=== PATIENT | male | born 1955 ===

== ENCOUNTER → 2024-02-09 07:05 | Outpatient (REF) | payer OTHER, SELFPAY | LOC: RAD 07:05 | PROVIDERS: ATTENDING PHYSICIAN Nurse Practitioner | DX: Q33.0 Congenital cystic lung (principal) | CPT/HCPCS: 71250 ==

== ENCOUNTER → 2024-03-04 12:32 | Day surgery (SDC) | payer OTHER, SELFPAY ==
[2024-03-04] VITALS (7 sets, daily range): BP systolic 139–166; BP diastolic 80–99; BMI 26.7
== END ==
LOC: GI 12:32
PROVIDERS: ATTENDING PHYSICIAN Internal Medicine Critical Care Medicine
DX: J18.1 Lobar pneumonia, unspecified organism (principal); R93.89 Abnormal findings on diagnostic imaging of other specified body structures; R06.02 Shortness of breath; J47.9 Bronchiectasis, uncomplicated; J44.9 Chronic obstructive pulmonary disease, unspecified
CPT/HCPCS: 31629; 31623; 31628; 31624; 31627; 31652; 88172; 88173; 88305; 71045; 76000; 87015; 87070; 87081; 87102; 87116; 87205; 87252; 87278; 88112; 88333; 94640; C1887

== ENCOUNTER 2024-03-14 22:10 | Inpatient (IN) | payer OTHER, SELFPAY ==
[2024-03-14] VITALS (9 sets, daily range): BP systolic 113–167; BP diastolic 69–90; BMI 26.0
[2024-03-14 16:27] LABS: % Basophils 0.6 % (0-2); % Eosinophils 4.1 % (0-6); % Lymphocytes 28.6 % (20.5-51.1); % Monocytes 10.3 % (1.7-9.3); % Neutrophils 55.4 % (42.2-75.2); Absolute Basophils 0.1 10^3/uL (0-0.2); Absolute Eosinophils 0.3 10^3/uL (0-0.7); Absolute Immature Granulocytes 0.1 10^3/uL (0-0.05); Absolute Lymphocytes 2.3 10^3/uL (1.2-3.4); Absolute Monocytes 0.8 10^3/uL (0.1-0.6); Absolute Neutrophils 4.5 10^3/uL (1.4-6.5); Hematocrit 35.6 % (39.0-52.0); Hemoglobin 12.5 g/dL (13.0-18.0); Mean Corp Hgb Conc. 35.1 g/dL (33.0-37.0); Mean Corpuscular Hgb 29.4 pg (27.0-31.0); Mean Corpuscular Volume 83.8 fL (80.0-94.0); Mean Platelet Volume 8.5 fL (7.4-10.4); Nucleated Red Blood Cells % 0 % (-); Platelet Count 268 10^3/uL (130-400); Red Blood Cell Count 4.25 10^6/uL (4.70-6.10); Red Cell Dist. Width 12.3 % (11.5-14.5); White Blood Cell Count 8.1 10^3/uL (4.8-10.8)
[2024-03-14 16:46] LABS: ALT (SGPT) 26 U/L (0-50); AST (SGOT) 28 U/L (17-59); Albumin 4.3 g/dl (3.5-5.0); Alkaline Phosphatase 86 U/L (38-126); Blood Urea Nitrogen 19 mg/dl (9-20); Calcium 9.4 mg/dl (8.4-10.2); Carbon Dioxide 28 mmol/L (22-30); Chloride 101 mmol/L (98-107); Estimated Creatinine Clearance 76 ml/min; Glucose 98 mg/dl (70-99); Potassium 4.4 mmol/L (3.5-5.1); Sodium 137 mmol/L (135-145); Total Bilirubin 0.6 mg/dl (0.2-1.3); Total Protein 7.6 g/dl (6.3-8.2); eGFR > 60.00
--- NOTE | 2024-03-14 18:06 | ED.GENMED ---
History of Present Illness
General
Chief Complaint: Cough
Source: patient
Exam Limitations: none
Time Seen by Provider: 03/14/24 16:13
Nursing documentation reviewed up to this point in time: agreed with
Travel History
Have you had any contact with someone who has COVID-19?: No
Do you have any symptoms of coronavirus? Fever > 100 degrees, chills, cough, shortness of breath, sore throat, loss of taste or smell, muscle aches, or headache?: No
History of Present Illness
History of Present Illness:
69-year-old male with past medical history of chronic bronchitis, anxiety, depression presenting emergency department today with concerns of persistent hemoptysis following his bronchoscopy on March 04, 2024. Patient presents from [facility]. Patient
states that he she had the biopsy done because of 1 episode of hemoptysis. Patient states at that time there is blood-tinged sputum. Patient states that following the procedure, he started with this but then it progressed to increasing volumes of
blood and jen blood and clots rather than blood tinged sputum. Patient states that he will cough up multiple teaspoons per day. Patient denies chest pain, shortness of breath. Patient has any abdominal pain, nausea, vomiting. Patient denies
any recent hospitalizations, patient denies any fevers or chills.
Review of Systems
Review of Systems
All Other Systems: ROS reviewed and negative except as documented in HPI and ROS
Phy Exam
Physical Exam
Physical Exam:
General: Patient is well appearing and in no acute distress; non-toxic
Skin: Warm and dry, no rashes or lesions
Head: Normocephalic, atraumatic
Eyes: Sclera non-icteric. EOMs intact. PERRLA.
Mouth: No obvious blood noted in posterior pharynx. Uvula midline.
Cardiac: Regular rate and rhythm, no murmurs, patient is not tachycardiac
Peripheral Vascular: No lower extremity swelling or edema
Pulm: Normal respiratory effort, rhonchi heard on right lung bases
Abdomen: No abdominal tenderness
Neuro: CN II-XII intact, no focal neurologic deficits.
Psychiatric: Appropriate mood and affect.
Course
Orders/Labs/Results
Orders:
Orders
03/14/24 16:20
CMP [Comprehensive Metabolic Panel] Urgent
Complete Blood Count/With Diff Urgent
03/14/24 18:28
CT Chest With Iv Contrast Urgent
Comment:
Reason For Exam: hemoptysis following bronchoscophy
Abnormal Lab Results
03/14/24
16:20
RBC 4.25 L 10^6/uL
(4.70-6.10)
Hgb 12.5 L g/dL
(13.0-18.0)
Hct 35.6 L %
(39.0-52.0)
Abs Immat Gran (auto) 0.1 H 10^3/uL
(0-0.05)
Absolute Monos (auto) 0.8 H 10^3/uL
(0.1-0.6)
Immature Gran % 1.0 H %
(0-0.5)
Monocytes % 10.3 H %
(1.7-9.3)
03/14/24 16:20
03/14/24 16:20
Vital Signs
Initial and Last Documented VS:
Initial Vital Signs
Temp Pulse Resp BP Pulse Ox
98.2 F 74 18 167/90 98
03/14/24 16:12 03/14/24 16:12 03/14/24 16:12 03/14/24 16:12 03/14/24 16:12
Last Documented Vital Signs
Temp Pulse Resp BP Pulse Ox
98.2 F 76 15 135/86 98
03/14/24 16:12 03/14/24 20:30 03/14/24 20:30 03/14/24 20:00 03/14/24 20:30
MDM/Problems Addressed
Differential Diagnosis Includes:
Differentials include acute bronchitis, tuberculosis, pulmonary embolism, hemorrhage status post bronchoscopy, neoplasm
MDM/Problems Addressed:
hemoptysis
Chronic conditions affecting care:
chronic bronchitis, anxiety, depression
*Pulse Oximetry
Patient hypoxic: no
*Critical Care Note
Total Time (30-74mins, 75-104mins- exclusive of procedures): Not Applicable
Data Reviewed
Review of Other/Old Records Reveals: Records and Operative Reports (Reviewed bronchoscopy report from 03/04/2024)
Source: patient and records
Patient Management
Discussion with other providers: Semiconductor Engineer (Spoke to bricklayer helper on-call, via [place] text, spoke to Dr. Leslie patient's bricklayer helper who recommends CT scan of chest with IV contrast)
Escalation/DeEscalation of care consider admission/obs:
69-year-old male with past medical history of chronic bronchitis, anxiety, depression presenting emergency department today with concerns of persistent hemoptysis following his bronchoscopy on March 04, 2024. Patient denies any chest pain, shortness
of breath. His vitals are stable here, is not hypoxic. H&H stable. CT scan today demonstrates 2 small arteries from the right side of the aorta which extends into the mass most consistent with acute general vascular anomaly but no jen
hemorrhage noted in the right lung base. It is considering patient's persistent in office, will admit for further observation and care. Spoke to his bricklayer helper as well as bricklayer helper on-call who are aware of case recommend TONNY regan. Patient
referred for admission.
ED Attending Note
-
Portions of this chart may have been created with voice recognition software.� Occasional wrong word or��sound alike� substitutions may have occurred due to the inherent limitations of voice recognition software.
Discharge Plan
Departure
Patient Disposition: Admit
Date of Disposition: 03/14/24
Time of Disposition: 21:06
Admit to: Med/Surg
Presentation/result/management discussed w/ accepting MD/DO: Hospitalist
Patient with high blood pressure during this ER visit?: Yes
Condition: Good
Discharge Problem:
Cough with hemoptysis
Prescriptions:
No Action
multivitamin Tablet
1 tab PO DAILY
losartan 50 mg Tablet
50 mg PO BID
nortriptyline 50 mg Capsule
50 mg PO HS
metoprolol tartrate 100 mg Tablet
100 mg PO BID
tramadol 50 mg Tablet
50 mg PO TID
hydroxyzine pamoate [Vistaril] 50 mg Capsule
50 mg PO BID PRN (Reason: ANXIETY)
spironolactone [Aldactone] 25 mg Tablet
25 mg PO DAILY
acetaminophen 325 mg Tablet
650 mg PO BIDPRN PRN (Reason: mild pain)
albuterol sulfate 2.5 mg /3 mL (0.083 %) Solution For Nebulization
2.5 mg INHALATION R TIDPRN PRN (Reason: sob)
aspirin [Aspir-Low] 81 mg Tablet,Delayed Release (Dr/Ec)
81 mg PO DAILY
calcium carbonate [Tums 500] 500 mg calcium (1,250 mg) Tablet,Chewable
1,000 mg PO BIDPRN PRN (Reason: heartburn)
Patient Comments:
03/14/2024, Tums Ultra.
Referrals:
[facility] [Family Provider] -
Interventions
Interventions:
*Risk Screen - Suicide Last Done: 03/14/24 16:12
*General Assessment Last Done: 03/14/24 16:12
*Neglect/Abuse Screening Last Done: 03/14/24 16:12
ED- Fall Risk Assessment Last Done: 03/14/24 16:12
*ED COVID-19 Vaccine History Last Done: 03/14/24 16:12
ED- Pulmonary Assessment Last Done: 03/14/24 16:12
Discharge Date and Time
Print Language: AMHARIC
--- NOTE | 2024-03-14 21:31 | HPS.HSE ---
Family Physician
-
Family Physician: Facility [facility]
Chief Complaint
-
coughing blood
History of Present Illness
69-year-old male past medical history of chronic bronchitis, hypertension, osteoarthritis, osteoporosis, anxiety/depression [facility] with persistent hemoptysis after bronchoscopy on 03/04/2024. Patient had bronchoscopy performed due to
occasional cough with blood-tinged sputum and supposed to cystic lung abnormality.
During bronchoscopy patient had biopsy performed of right lower lobe lesion 10 days ago. The day after the procedure he had progression to increased volume of blood as well as jen blood and clots. He coughs up blood 3 times per day. He does
have some chest pain with cough. Denies shortness of breath. Denies abdominal pain, nausea or vomiting. Denies fevers or chills.
Denies history of smoking. Sometimes drinks alcohol and uses marijuana.
Medical History
Past Medical History
Past Medical History: Reports Other (hronic bronchitis, hypertension, osteoarthritis, osteoporosis, anxiety/depression)
Past Surgical History: Reports Other (Femur fracture with 2 screws, spinal surgery)
Social History
Tobacco: Non-smoker
Alcohol: Occasional
Drug: Marijuana
Family History
Family History: Not pertinent
Allergies / Home Medications
Allergies reflects when Allergies were last updated in [employer].
Home Medications with original date entered in [employer]
Allergy/Medication List:
Allergies
Allergy/AdvReac Type Severity Reaction Status Date / Time
No Known Allergies Allergy Verified 03/04/24 12:40
Home Medications
hydroxyzine pamoate 50 mg capsule 50 mg PO BID PRN ANXIETY 02/28/24
losartan 50 mg tablet 50 mg PO BID 02/28/24
metoprolol tartrate 100 mg tablet 100 mg PO BID 02/28/24
multivitamin 1 tab PO DAILY 02/28/24
nortriptyline 50 mg capsule 50 mg PO HS 02/28/24
spironolactone 25 mg tablet (Aldactone) 25 mg PO DAILY 02/28/24
tramadol 50 mg tablet 50 mg PO TID 02/28/24
acetaminophen 325 mg tablet 650 mg PO BIDPRN PRN mild pain 03/14/24
albuterol sulfate 2.5 mg/3 mL (0.083 %) solution for nebulization 2.5 mg inhalation R TIDPRN PRN sob 03/14/24
aspirin 81 mg tablet,delayed release 81 mg PO DAILY 03/14/24
calcium carbonate 1,000 mg PO BIDPRN PRN heartburn 03/14/24
Review of Systems
-
History Source: Patient
A 12 point ROS was completed and negative except as noted: Yes
Constitutional: Reports No Symptoms
EENT: Reports No Symptoms
Respiratory: Reports See HPI
Cardiac: Reports No Symptoms
Abdomen/GI: Reports No Symptoms
: Reports No Symptoms
Musculoskeletal: Reports No Symptoms
Skin: Reports No Symptoms
Neurological: Reports No Symptoms
Endocrine: Reports No Symptoms
Hematologic/Lymphatic: Reports No Symptoms
Psych: Reports No Symptoms
Physical Exam
Vital Signs
Vital Signs
Temp Pulse Resp BP Pulse Ox
98.2 F 76 15 135/86 98
03/14/24 16:12 03/14/24 20:30 03/14/24 20:30 03/14/24 20:00 03/14/24 20:30
Physical Exam
General: Well Developed, Well Nourished and No Apparent Distress
HEENT: NormoCephalic, Moist mucous membranes and Atraumatic
Respiratory: Clear
Cardiac: S1/S2 and Regular Rhythm; No Murmur or Rub
GI: Soft, Non Tender, Non Distended and Normal Bowel Sounds; No Organomegaly
Rectal: Deferred by Provider
Musculoskeletal: No Clubbing, No Cyanosis and No Edema
Skin: No Rash
Neuro: Nonfocal/grossly intact
Laboratory Results
-
03/14/24 16:20
03/14/24 16:20
Laboratory Results
Total Bilirubin 0.6 mg/dl (0.2-1.3) 03/14/24 16:20
AST 28 U/L (17-59) 03/14/24 16:20
ALT 26 U/L (0-50) 03/14/24 16:20
Alkaline Phosphatase 86 U/L (38-126) 03/14/24 16:20
Data Reviewed
-
Lab Data: Labs Reviewed by me
Old Records: Reviewed
Impression/Plan
-
IMPRESSION:
PLAN:
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
-CT chest shows persistent complex solid and multicystic cavitary type lesion in the medial basilar right lower lobe with 2 small arteries in the right side of the aorta which extend into this mass consistent with unusual congenital vascular anomaly
-Bronchoscopy negative for malignant cells
-Quantify hemoptysis
-No bleeding currently
-Transischemic acid if recurrent bleeding
-Hold aspirin
-Pulmonary consulted
Chronic bronchitis
-Continue DuoNebs PRN
Essential hypertension
-Continue losartan, metoprolol, spironolactone
Osteoarthritis
-Continue tramadol
Osteoporosis
Anxiety/depression
-Continue nortriptyline
Full code
DVT prophylaxis�SCDs
Regular diet
--- NOTE | 2024-03-14 21:39 | EDRN ---
Per EMAR, the pt is ordered 'Tranexamic Acid 250mg Inhalation NOW PRN'. this RESIDENTIAL DRIVER spoke with admitting hospitalist Dr Hewitt who states this med to to be given to the pt only if he coughs up blood and does NOT need to be given now in the ER. will
continue to monitor the pt.
[2024-03-14] MEDS: ULTRAM 50 MG PO (22:54)
[2024-03-14] MEDS: PAMELOR 50 MG PO (22:57)
[2024-03-15 06:22] VITALS: BP 128/81
[2024-03-15 06:39] LABS: % Basophils 0.4 % (0-2); % Immature Granulocytes 0.5 % (0-0.5); % Lymphocytes 13.6 % (20.5-51.1); % Monocytes 8.5 % (1.7-9.3); Absolute Eosinophils 0.2 10^3/uL (0-0.7); Absolute Immature Granulocytes 0.1 10^3/uL (0-0.05); Absolute Lymphocytes 1.5 10^3/uL (1.2-3.4); Absolute Monocytes 0.9 10^3/uL (0.1-0.6); Absolute Neutrophils 8.1 10^3/uL (1.4-6.5); Hematocrit 33.5 % (39.0-52.0); Hemoglobin 11.8 g/dL (13.0-18.0); Mean Corp Hgb Conc. 35.2 g/dL (33.0-37.0); Mean Corpuscular Hgb 29.1 pg (27.0-31.0); Mean Corpuscular Volume 82.7 fL (80.0-94.0); Mean Platelet Volume 8.4 fL (7.4-10.4); Nucleated Red Blood Cells % 0 % (-); Platelet Count 241 10^3/uL (130-400); Red Blood Cell Count 4.05 10^6/uL (4.70-6.10); Red Cell Dist. Width 12.3 % (11.5-14.5); White Blood Cell Count 10.8 10^3/uL (4.8-10.8)
[2024-03-15 07:06] LABS: ALT (SGPT) 19 U/L (0-50); AST (SGOT) 23 U/L (17-59); Albumin 3.8 g/dl (3.5-5.0); Alkaline Phosphatase 79 U/L (38-126); Blood Urea Nitrogen 15 mg/dl (9-20); Calcium 9.3 mg/dl (8.4-10.2); Carbon Dioxide 27 mmol/L (22-30); Chloride 102 mmol/L (98-107); Estimated Creatinine Clearance 86 ml/min; Glucose 109 mg/dl (70-99); Potassium 4.3 mmol/L (3.5-5.1); Sodium 138 mmol/L (135-145); Total Bilirubin 0.7 mg/dl (0.2-1.3); Total Protein 6.9 g/dl (6.3-8.2); eGFR > 60.00
[2024-03-15 07:32] VITALS: BP 135/78
[2024-03-15] MEDS: COZAAR 50 MG PO (08:14)
[2024-03-15] MEDS: ALDACTONE 25 MG PO (08:14)
[2024-03-15] MEDS: ULTRAM 50 MG PO (08:14)
[2024-03-15] MEDS: LOPRESSOR 100 MG PO (08:14)
[2024-03-15] MEDS: THERAGRAN 1 TABLET PO (08:14)
--- NOTE | 2024-03-15 09:21 | CM ---
CM reviewed medical records. Patient is from [facility]. Plan to return when medically stable.
PLAN: Return to [facility]
--- NOTE | 2024-03-15 09:36 | CON.PUL ---
Consultation
Consultation Request
Date/Time Consultation Requested: 03/15/24
Date/Time Consultation Performed: 03/15/24
Performing Provider: Matt
Reason for Consultation: Hemoptysis
Medical History
-
History of Present Illness:
Patient is a 69-year-old male with previous history of chronic bronchitis, hypertension presenting from [facility] for tablespoon-sized hemoptysis x 3-4 episodes per day. He has history of cystic lung mass and right lower
lobe initially found on CT from January. He underwent bronchoscopy 03/04/2024 for evaluation of infection/malignancy, path of which and cultures are negative. He does note increasing quantity of hemoptysis since procedure. Repeat CT scan indicating
there are 2 large blood vessels entering in the area indicating sequestration.
He has no other associated symptoms including shortness of breath. He is currently still on room air.
Past Medical History
Past Medical History: Other (see list below)
Social History
Tobacco: Non-smoker
Alcohol: None
Drug: None
Family History
Family History: Reviewed & Not Pertinent
Allergies / Home Medications
Allergies
Allergy/AdvReac Type Severity Reaction Status Date / Time
No Known Allergies Allergy Verified 03/04/24 12:40
Home Medications
�Medication �Instructions �Recorded �Confirmed �Last Taken �Type
hydroxyzine pamoate 50 mg capsule 50 mg PO BID PRN ANXIETY 02/28/24 03/14/24 Unknown History
losartan 50 mg tablet 50 mg PO BID 02/28/24 03/14/24 Unknown History
metoprolol tartrate 100 mg tablet 100 mg PO BID 02/28/24 03/14/24 Unknown History
multivitamin 1 tab PO DAILY 02/28/24 03/14/24 Unknown History
nortriptyline 50 mg capsule 50 mg PO HS 02/28/24 03/14/24 Unknown History
spironolactone 25 mg tablet 25 mg PO DAILY 02/28/24 03/14/24 Unknown History
(Aldactone)
tramadol 50 mg tablet 50 mg PO TID 02/28/24 03/14/24 Unknown History
acetaminophen 325 mg tablet 650 mg PO BIDPRN PRN mild pain 03/14/24 03/14/24 Unknown History
albuterol sulfate 2.5 mg/3 mL 2.5 mg inhalation R TIDPRN PRN sob 03/14/24 03/14/24 Unknown History
(0.083 %) solution for nebulization
aspirin 81 mg tablet,delayed 81 mg PO DAILY 03/14/24 03/14/24 Unknown History
release
calcium carbonate 1,000 mg PO BIDPRN PRN heartburn 03/14/24 03/14/24 Unknown History
Review of Systems
-
History Source: Patient
All other systems: Negative unless noted
Vitals / Labs / Diagnostic Testing
Vital Signs
Temp Pulse Resp BP Pulse Ox
98.1 F 94 18 135/78 97
03/15/24 07:32 03/15/24 07:32 03/14/24 22:53 03/15/24 07:32 03/15/24 07:32
Lab Data
03/15/24 06:23
03/15/24 06:23
Diagnostic Testing:
Physical Exam
-
HEENT: Normocephalic, Anicteric and Moist Mucous Membranes
Cardiovascular: S1/S2 and Regular Rhythm
Respiratory: Clear and Non-Labored Respirations
GI: Soft, Non Distended and Non Tender
Neurology: Awake, Alert, Oriented, AO x 3 and No Motor Deficits
Skin: Warm, Dry and Good Color
General: Comfortable and Other (NAD)
Assessment
-
Patient is a 69-year-old male with previous history of chronic bronchitis, hypertension presenting from [facility] for tablespoon-sized hemoptysis x 3-4 episodes per day. He has history of cystic lung mass and right lower
lobe initially found on CT from January. He underwent bronchoscopy 03/04/2024 for evaluation of infection/malignancy, path of which and cultures are negative. He does note increasing quantity of hemoptysis since procedure. Repeat CT scan indicating
there are 2 large blood vessels entering in the area indicating sequestration.
He has no other associated symptoms including shortness of breath. He is currently still on room air.
Hemoptysis, acute on chronic
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
Acute blood loss anemia, mild
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
Right lower lobe cystic mass status post bronchoscopy 03/04/2024, path/culture negative
Hypertension
Chronic bronchitis
Incarcerated status
Plan
No oxygen was needed on admission, currently saturating >90% on RA
Prior history of lung disease is noted including chronic bronchitis
PFT as OP showing moderate obstruction, he was due for repeat testing on next visit
Repeat today
CXR/CT obtained indicating cystic mass/sequestration
Coordinated plan of care with IR and CTS for trial of RAJIV but given risk, will need overnight observation for possible surgery if necrotic tissue develops
Ultimate plan would be for definitive right lower lobectomy
We will arrange readmission when Dr Dumont back on service 03/19
This was reviewed in detail with patient and care team
Patient can continue to quantify hemoptysis until then
Hb reviewed, mildly decreased, observation for now
We discussed avoiding any NSAIDs, ASA
HTN history
No prior ECHO for review
CAD was noted on CT scan, can obtain cardiac w/u as OP
Lifelong nonsmoker
Incarcerated status, we will coordinate with [facility]
Will need outpatient pulmonary evaluation in our office for PFTs and 6MWT
Reviewed with patient
Discharge planning per team
We will follow again when he is readmitted 03/19
Diagnostic Data
Chest X-Ray: 03/04/24- Low lung volumes without evidence for pneumothorax. There are increased bibasilar opacities with known complex solid cystic lesion within the medial right lower lobe not well-visualized radiographically.
CT Scan: CHEST 03/14/24- Persistent complex solid and multicystic cavitary type lesion in the medial basilar right lower lobe, previous bronchoscopy. There are 2 small arteries from the right side of the aorta which extend into this mass, findings
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 No jen hemorrhage in the right lung base.
Chest 02/26/24- 1. Stable CT appearance of a complex solid and multicystic/cavitary lesion in the medial basilar right lower lobe. Differential considerations include congenital, infectious/inflammatory, or neoplastic etiologies.
2. Severe coronary artery calcifications.
Echo:
PFT's: Spirometry 02/20/2024: FEV1 2.1 L 67%, FVC 3.08 L 73%, ratio 0.68 (moderate obstruction)
Reports and relevant images were personally reviewed.
Total time spent on this consultation __75__ includes review of history, physical exam, medications, laboratory data, personal review of imaging, extensive review of outpatient records, discussion with care team and respiratory therapy.
--- NOTE | 2024-03-15 10:29 | W.PN.HOSP.TC ---
Addendum entered and electronically signed by Kevon Rodriguez MD 03/15/24 15:31:
avoid NSAIDS, ASA
Addendum entered and electronically signed by Kevon Rodriguez MD 03/15/24 15:28:
HgB stable, can quantify hemoptysis.
Plan is as follows:
Hold ASA until cleared by pulm/ct surgery if needed
Discussed with admission team and Patient; Patient instructed to come back to the ED on 03/19/24 for admission to medicine and plan for IR Embolization that morning.
Please obtain labs as directed above once at the hospital.
Admit to medicine. Should be seen by IR, Pulmonary and CT Surgery at that time. IR aware of plan.
If worsening Hemoptysis please come back to the hospital
F/u Cards outpatient for possible CAD noted on CT
Dictation: [id number]
Original Note:
Today's Communication/Plan
-
monitor for hemoptysis
cont to hold asa
f/u pulm recs
Assessment / Plan
Assessment / Plan
Physical Exam
General: Well Developed, Well Nourished and No Apparent Distress
HEENT: NormoCephalic, Moist mucous membranes and Atraumatic
Respiratory: Clear
Cardiac: S1/S2 and Regular Rhythm; No Murmur or Rub
GI: Soft, Non Tender, Non Distended and Normal Bowel Sounds; No Organomegaly
Rectal: Deferred by Provider
Musculoskeletal: No Clubbing, No Cyanosis and No Edema
Skin: No Rash
Neuro: Nonfocal/grossly intact
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
-CT chest shows persistent complex solid and multicystic cavitary type lesion in the medial basilar right lower lobe with 2 small arteries in the right side of the aorta which extend into this mass consistent with unusual congenital vascular anomaly
-Bronchoscopy negative for malignant cells
-Quantify hemoptysis
-No bleeding currently
-TXA if recurrent bleeding
-Hold aspirin - no hx of CAD as per hx
-Pulmonary consulted
-Will most likely need interventional radiology/pulmonary intervention
Chronic bronchitis
-Continue DuoNebs PRN
Essential hypertension
-Continue losartan, metoprolol, spironolactone
Osteoarthritis
-Continue tramadol
Osteoporosis
Anxiety/depression
-Continue nortriptyline
Full code
DVT prophylaxis�SCDs
Regular diet
Anticipated Discharge: 24 - 48 hours
Subjective/Interval History
-
Date of Service: March 15, 2024
No acute events overnight
Objective Data
-
Labs:
Laboratory Results
03/15/24
06:23
WBC 10.8
Hgb 11.8 L
Hct 33.5 L
Plt Count 241
Sodium 138
Potassium 4.3
Chloride 102
Carbon Dioxide 27
BUN 15
Creatinine 0.8
Glucose 109 H
Calcium 9.3
Total Bilirubin 0.7
AST 23
ALT 19
Alkaline Phosphatase 79
Vital Signs:
Vital Signs
Temp Pulse Resp BP Pulse Ox
98.1 F 94 18 135/78 97
03/15/24 07:32 03/15/24 07:32 03/14/24 22:53 03/15/24 07:32 03/15/24 07:32
Review of Systems
-
History Source: Patient
All other systems: Not reviewed unless documented
Data Reviewed
-
CT Scan: Image personally visualized and interpreted and Report Reviewed by me
Labs: Labs Reviewed by me
[2024-03-15 10:34] VITALS: BMI 25.7
[2024-03-15 10:43] VITALS: BP 132/85
[2024-03-15] MEDS: ATARAX 50 MG PO (11:16)
[2024-03-15] MEDS: VENTOLIN NEBULES 2.5 MG INH (13:58)
--- NOTE | 2024-03-15 15:05 | CM ---
Pt ready for d/c
[facility] at [facility] - [phone] - notified Juvenal pt to Return
Plan - return to [facility]
- [phone]
--- NOTE | 2024-03-15 15:34 | W.DS.TRANS ---
DC Summary - Home Agent
-
Discharge Instructions:
Discharge Diagnosis/Procedures # Worsening hemoptysis after bronchoscopy
secondary to cavitary lesion in the medial
basilar right lower lobe cavitary lesion likely
congenital vascular anomaly
Diet Low Fat,Low Cholesterol
Activity No strenuous activity
Blood Work cbc, cmp, ptt/pt/INR once arrives back in ED
Instructions:
Stand-Alone Forms:
Changes to Home Medications: Yes
Discharge Medications:
DC Medications w/original date entered in [employer]
hydroxyzine pamoate 50 mg capsule 50 mg PO BID PRN ANXIETY 02/28/24
losartan 50 mg tablet 50 mg PO BID 02/28/24
metoprolol tartrate 100 mg tablet 100 mg PO BID 02/28/24
multivitamin 1 tab PO DAILY 02/28/24
nortriptyline 50 mg capsule 50 mg PO HS 02/28/24
spironolactone 25 mg tablet (Aldactone) 25 mg PO DAILY 02/28/24
tramadol 50 mg tablet 50 mg PO TID 02/28/24
acetaminophen 325 mg tablet 650 mg PO BIDPRN PRN mild pain 03/14/24
albuterol sulfate 2.5 mg/3 mL (0.083 %) solution for nebulization 2.5 mg inhalation R TIDPRN PRN sob 03/14/24
aspirin 81 mg tablet,delayed release 81 mg PO DAILY 03/14/24
calcium carbonate 1,000 mg PO BIDPRN PRN heartburn 03/14/24
Home Medication Changes
stop ASA
Pending Results: Yes
[2024-03-15 16:09] VITALS: BP 117/69
== END 2024-03-15 16:15 | DRG 204 ==
LOC: 3 WEST ACU 22:10
PROVIDERS: Physician Assistant; ADMITTING PHYSICIAN Hospitalist; ATTENDING PHYSICIAN Internal Medicine; CONSULT PHYSICIAN Internal Medicine; EMERGENCY PHYSICIAN Emergency Medicine
DX: R04.2 Hemoptysis (principal); D62 Acute posthemorrhagic anemia; J42 Unspecified chronic bronchitis; I10 Essential (primary) hypertension; M81.0 Age-related osteoporosis without current pathological fracture; F41.9 Anxiety disorder, unspecified; F32.A Depression, unspecified
CPT/HCPCS: 71260; 80053; 85025; 87070; 94060; 94640; 99285; Q9967

== ENCOUNTER 2024-03-19 12:37 | Inpatient (IN) | payer OTHER, SELFPAY ==
[2024-03-19] VITALS (23 sets, daily range): BP systolic 61–162; BP diastolic 67–116; BMI 25.6
[2024-03-19 11:36] LABS: % Basophils 0.4 % (0-2); % Eosinophils 3.1 % (0-6); % Immature Granulocytes 0.7 % (0-0.5); % Lymphocytes 18.8 % (20.5-51.1); % Monocytes 10.9 % (1.7-9.3); % Neutrophils 66.1 % (42.2-75.2); Absolute Eosinophils 0.2 10^3/uL (0-0.7); Absolute Immature Granulocytes 0.1 10^3/uL (0-0.05); Absolute Lymphocytes 1.3 10^3/uL (1.2-3.4); Absolute Monocytes 0.7 10^3/uL (0.1-0.6); Absolute Neutrophils 4.5 10^3/uL (1.4-6.5); Hematocrit 34.4 % (39.0-52.0); Hemoglobin 12.1 g/dL (13.0-18.0); Mean Corp Hgb Conc. 35.2 g/dL (33.0-37.0); Mean Corpuscular Hgb 29.1 pg (27.0-31.0); Mean Corpuscular Volume 82.7 fL (80.0-94.0); Mean Platelet Volume 8.2 fL (7.4-10.4); Nucleated Red Blood Cells % 0 % (-); Platelet Count 257 10^3/uL (130-400); Red Blood Cell Count 4.16 10^6/uL (4.70-6.10); Red Cell Dist. Width 12.1 % (11.5-14.5); White Blood Cell Count 6.8 10^3/uL (4.8-10.8)
[2024-03-19 11:52] LABS: ALT (SGPT) 25 U/L (0-50); AST (SGOT) 29 U/L (17-59); Alkaline Phosphatase 90 U/L (38-126); Blood Urea Nitrogen 16 mg/dl (9-20); Calcium 9.4 mg/dl (8.4-10.2); Carbon Dioxide 25 mmol/L (22-30); Chloride 101 mmol/L (98-107); Estimated Creatinine Clearance 86 ml/min; Glucose 121 mg/dl (70-99); INR 1.06; PT 13.6 Sec (11.4-14.6); Potassium 4.1 mmol/L (3.5-5.1); Sodium 138 mmol/L (135-145); Total Bilirubin 0.4 mg/dl (0.2-1.3); Total Protein 7.3 g/dl (6.3-8.2); eGFR > 60.00
--- NOTE | 2024-03-19 12:13 | HPS.HSE ---
Family Physician
-
Family Physician: [facility]
Chief Complaint
-
Hemoptysis
History of Present Illness
69-year-old male with past medical history of bronchitis, essential hypertension, osteoarthritis, osteoporosis, anxiety, depression, right lower lobe cystic mass came to the hospital for persistent hemoptysis going to IR embolization. Patient was
here last week and was discharged back to [facility] with instructions to follow-up today for IR guided embolization for persistent hemoptysis. Patient had recent bronchoscopy which showed right lower lobe cystic mass. Per patient he has been having
hemoptysis episode since discharge however he thinks it is getting better. Currently denies any chest pain, shortness of breath. Denies any abdominal pain.
Medical History
Past Medical History
Past Medical History: Reports Other (Chronic bronchitis, osteoarthritis,/hypertension, osteoporosis, anxiety, depression)
Past Surgical History: Reports Orthopedic
Social History
Tobacco: Non-smoker
Alcohol: Occasional
Drug: Marijuana
Family History
Family History: Not pertinent
Allergies / Home Medications
Allergies reflects when Allergies were last updated in [facility].
Home Medications with original date entered in [facility]
Allergy/Medication List:
Allergies
Allergy/AdvReac Type Severity Reaction Status Date / Time
No Known Allergies Allergy Verified 03/04/24 12:40
Home Medications
hydroxyzine pamoate 50 mg capsule 50 mg PO BID PRN ANXIETY 02/28/24
losartan 50 mg tablet 50 mg PO BID Blood Pressure 02/28/24
metoprolol tartrate 100 mg tablet 100 mg PO BID Blood Pressure 02/28/24
nortriptyline 50 mg capsule 50 mg PO HS sleep/mental health 02/28/24
spironolactone 25 mg tablet (Aldactone) 25 mg PO DAILY Blood Pressure 02/28/24
tramadol 50 mg tablet 50 mg PO TID Pain 02/28/24
acetaminophen 325 mg tablet 650 mg PO BIDPRN PRN mild pain 03/14/24
albuterol sulfate 2.5 mg/3 mL (0.083 %) solution for nebulization 2.5 mg inhalation R TIDPRN PRN sob 03/14/24
calcium carbonate 1,000 mg PO BIDPRN PRN heartburn 03/14/24
Medications on admission are unable to be verified or confirmed at this time.
Review of Systems
-
History Source: Patient
A 12 point ROS was completed and negative except as noted: Yes
Respiratory: Reports Hemoptysis
Physical Exam
Vital Signs
Vital Signs
Temp Pulse Resp BP Pulse Ox
98.2 F 60 17 110/67 95
03/19/24 11:15 03/19/24 12:00 03/19/24 12:00 03/19/24 12:00 03/19/24 12:00
Physical Exam
General: Well Nourished and No Apparent Distress
HEENT: Anicteric and Moist mucous membranes
Respiratory: Clear and Non Labored Respirations; No Wheezes
Cardiac: S1/S2 and Regular Rhythm
Breast: Deferred by me
GI: Soft, Non Tender and Non Distended
Rectal: Deferred by Provider
Genito-urinary: No Thornton
Musculoskeletal: No Edema
Neuro: Awake, Alert, Oriented and AO x 3
Psych: Calm
Laboratory Results
-
03/19/24 11:25
03/19/24 11:25
Laboratory Results
PT 13.6 Sec (11.4-14.6) 03/19/24 11:25
INR 1.06 03/19/24 11:25
Total Bilirubin 0.4 mg/dl (0.2-1.3) 03/19/24 11:25
AST 29 U/L (17-59) 03/19/24 11:25
ALT 25 U/L (0-50) 03/19/24 11:25
Alkaline Phosphatase 90 U/L (38-126) 03/19/24 11:25
Impression/Plan
-
Hemoptysis, acute on chronic
Ongoing mopped assist, admitted for IR guided embolization
Pulmonary, CT surgery consulted
Recent bronchoscopy 03/04 with right lower lobe cystic mass, path/culture negative
Admit to IMU
Quantify hemoptysis
Plan likely would be eventual right lower lobectomy
Continue to hold aspirin
dilaudid prn for pain for now
NPO
Hemoglobin 12.1, continue to monitor
Quantify hemoptysis
Chronic bronchitis
albuterol as needed
Essential hypertension
Continue metoprolol, losartan, hold Aldactone for now
Osteoporosis
Osteoarthritis
Anxiety/depression
Full code
DVT prophylaxis SCDs
I spent a total of 76 minutes with the patient or on the floor. More than 50% of this time involved counseling and coordination of care.
--- NOTE | 2024-03-19 15:18 | W.PN.UPDATE ---
Update Note
Progress Note Update
Both feeding arteries to the sequestration were embolized. Patient tolerated procedure well. Likely will have postembolization pain for 1-2 days.
Bedrest for 2 hours.
[2024-03-19] MEDS: NSS 1000 IV (16:46)
--- NOTE | 2024-03-19 17:00 | PTCARENOTE ---
Received patient into room 3345 with 2 guards present. He is aaox3. Reports minimal pain but tenderness in right groin. Right groin site is CDI. Assessment, care and VS as charted.
[2024-03-19] MEDS: DILAUDID 0.5 MG IV (20:34)
[2024-03-19] MEDS: COZAAR 50 MG PO (21:10)
[2024-03-19] MEDS: PAMELOR 50 MG PO (21:10)
[2024-03-19] MEDS: LOPRESSOR 100 MG PO (21:10)
[2024-03-19] MEDS: ATARAX 50 MG PO (23:01)
[2024-03-20] VITALS (21 sets, daily range): BP systolic 112–153; BP diastolic 70–89; BMI 26.3
[2024-03-20] MEDS: DILAUDID 0.5 MG IV ×2 (02:06→07:51)
[2024-03-20 04:03] LABS: % Basophils 0.2 % (0-2); % Eosinophils 0.8 % (0-6); % Immature Granulocytes 0.5 % (0-0.5); % Lymphocytes 10.5 % (20.5-51.1); % Monocytes 7.2 % (1.7-9.3); % Neutrophils 80.8 % (42.2-75.2); Absolute Eosinophils 0.1 10^3/uL (0-0.7); Absolute Immature Granulocytes 0.1 10^3/uL (0-0.05); Absolute Lymphocytes 1.1 10^3/uL (1.2-3.4); Absolute Monocytes 0.8 10^3/uL (0.1-0.6); Absolute Neutrophils 8.6 10^3/uL (1.4-6.5); Hematocrit 32.8 % (39.0-52.0); Hemoglobin 11.6 g/dL (13.0-18.0); Mean Corp Hgb Conc. 35.4 g/dL (33.0-37.0); Mean Corpuscular Hgb 28.9 pg (27.0-31.0); Mean Corpuscular Volume 81.8 fL (80.0-94.0); Mean Platelet Volume 8.2 fL (7.4-10.4); Nucleated Red Blood Cells % 0 % (-); Platelet Count 223 10^3/uL (130-400); Red Blood Cell Count 4.01 10^6/uL (4.70-6.10); Red Cell Dist. Width 11.9 % (11.5-14.5); White Blood Cell Count 10.6 10^3/uL (4.8-10.8)
[2024-03-20 04:32] LABS: Blood Urea Nitrogen 16 mg/dl (9-20); Calcium 8.8 mg/dl (8.4-10.2); Carbon Dioxide 26 mmol/L (22-30); Chloride 101 mmol/L (98-107); Estimated Creatinine Clearance 86 ml/min; Glucose 123 mg/dl (70-99); Potassium 4.9 mmol/L (3.5-5.1); Sodium 136 mmol/L (135-145); eGFR > 60.00
--- NOTE | 2024-03-20 05:06 | PTCARENOTE ---
NO acute events overnight. Right groin sight intact- prn dilaudid given for pain.
[2024-03-20] MEDS: LOPRESSOR 100 MG PO (07:53)
[2024-03-20] MEDS: COZAAR 50 MG PO (07:53)
--- NOTE | 2024-03-20 10:03 | W.PN.HOSP.TC ---
Today's Communication/Plan
-
Monitor vital signs see plan
DC today; spoke with pulmoanry
repeat CT in 4 months
Time of discharge 37 minutes
Assessment / Plan
Assessment / Plan
General: Well Nourished and No Apparent Distress
HEENT: Anicteric and Moist mucous membranes
Respiratory: Clear and Non Labored Respirations; No Wheezes
Cardiac: S1/S2 and Regular Rhythm
GI: Soft, Non Tender and Non Distended
Genito-urinary: No Thornton
Musculoskeletal: No Edema
Neuro: Awake, Alert, Oriented and AO x 3
Psych: Calm
Hemoptysis, acute on chronic
Ongoing mopped assist, admitted for IR guided embolization
s/p moped feeding artery embolization 03/20; per IR likely will have postembolization pain for 1 to 2 days
Pulmonary, CT surgery doesnt need to see as patient is being managed by IR and pulm per CT surgery
Recent bronchoscopy 03/04 with right lower lobe cystic mass, path/culture negative
Quantify hemoptysis
Plan likely would be eventual right lower lobectomy
Continue aspirin
Hemoglobin 12.1, continue to monitor
Quantify hemoptysis; no episode today
Pulmonary following, spoke with Dr. Gusman and he is okay with patient going back to shelter. Repeat CT in 4 months. Patient to follow-up with pulmonary outpatient
Chronic bronchitis
albuterol as needed
Essential hypertension
Continue metoprolol, losartan, restart Aldactone starting tomorrow
Osteoporosis
Osteoarthritis
Anxiety/depression
Full code
DVT prophylaxis SCDs
Anticipated Discharge: Today
Subjective/Interval History
-
Date of Service: March 20, 2024
denies anymore hemoptysis
Objective Data
-
Labs:
Laboratory Results
03/20/24
03:42
WBC 10.6
Hgb 11.6 L
Hct 32.8 L
Plt Count 223
Sodium 136
Potassium 4.9
Chloride 101
Carbon Dioxide 26
BUN 16
Creatinine 0.8
Glucose 123 H
Calcium 8.8
Vital Signs:
Vital Signs
Temp Pulse Resp BP Pulse Ox
97.9 F 84 24 127/79 94
03/20/24 07:50 03/20/24 07:53 03/20/24 06:00 03/20/24 07:53 03/20/24 06:00
I&O
03/19/24 03/20/24 03/21/24
06:59 06:59 06:59
Intake Total 1325 / 1325
Output Total 1050 / 1050
Balance 275 / 275
--- NOTE | 2024-03-20 10:04 | CON.PUL ---
Consultation
Consultation Request
Date/Time Consultation Requested: 03/20/2024-8 AM
Date/Time Consultation Performed: 03/20/2024-8 AM
Requesting Provider: Hospitalist
Performing Provider: Dr. Gusman
Reason for Consultation: Hemoptysis
Medical History
-
Chief Complaint: Hemoptysis
History of Present Illness:
69-year-old incarcerated male with a history of chronic bronchitis, cystic lung mass right lower lobe status post bronchoscopy 03/04/2024 and hypertension was recently discharged with a diagnosis of hemoptysis and pulmonary sequestration and returns
with more hemoptysis for bronchial artery embolization-pulmonary consulted for hemoptysis/embolization 03/20/2024. His hemoptysis has resolved. He states that the hemoptysis resolved prior to the embolization. He denies any chest pain, pleurisy,
chest congestion, shortness of breath at rest, abdominal pain, reflux, anorexia, or unintentional weight loss. He did not complain of lower extremity edema.
Past Medical History
Past Medical History: None (Chronic bronchitis. Pulmonary sequestration/hemoptysis. Cystic lung mass right lower lobe January 2024.)
Social History
Tobacco: Non-smoker
Alcohol: None
Drug: None
Living: Care Home
Occupational Exposures: No known asbestos exposure
Environmental Exposures: No known tuberculosis exposure
Family History
Family History: Other
Allergies / Home Medications
Allergies
Allergy/AdvReac Type Severity Reaction Status Date / Time
No Known Allergies Allergy Verified 03/04/24 12:40
Home Medications
�Medication �Instructions �Recorded �Confirmed �Last Taken �Type
hydroxyzine pamoate 50 mg capsule 50 mg PO BID PRN ANXIETY 02/28/24 03/19/24 03/19/24 History
losartan 50 mg tablet 50 mg PO BID Blood Pressure 02/28/24 03/19/24 03/19/24 History
metoprolol tartrate 100 mg tablet 100 mg PO BID Blood Pressure 02/28/24 03/19/24 03/19/24 History
nortriptyline 50 mg capsule 50 mg PO HS sleep/mental health 02/28/24 03/19/24 03/18/24 History
spironolactone 25 mg tablet 25 mg PO DAILY Blood Pressure 02/28/24 03/19/24 03/19/24 History
(Aldactone)
tramadol 50 mg tablet 50 mg PO TID Pain 02/28/24 03/19/24 03/19/24 History
acetaminophen 325 mg tablet 650 mg PO BIDPRN PRN mild pain 03/14/24 03/19/24 03/19/24 History
albuterol sulfate 2.5 mg/3 mL 2.5 mg inhalation R TIDPRN PRN sob 03/14/24 03/19/24 03/19/24 History
(0.083 %) solution for nebulization
calcium carbonate 1,000 mg PO BIDPRN PRN heartburn 03/14/24 03/19/24 03/19/24 History
Review of Systems
-
Unable to Obtain full review of systems at this time due to: Other (Per HPI)
Vitals / Labs / Diagnostic Testing
Vital Signs
Temp Pulse Resp BP Pulse Ox
97.9 F 84 24 127/79 94
03/20/24 07:50 03/20/24 07:53 03/20/24 06:00 03/20/24 07:53 03/20/24 06:00
Lab Data
03/20/24 03:42
03/20/24 03:42
Laboratory Results
03/19/24
11:25
PT 13.6
INR 1.06
Diagnostic Testing:
Physical Exam
-
Exam:
Well-nourished and well-developed in no apparent distress
HEENT-atraumatic, normocephalic
Neck-supple, no JVD, no bruit
Heart-regular rate and rhythm-no murmurs, rubs or gallops
Chest with crackles at the right greater than left base and no wheezes
Abdomen-soft, nontender, nondistended, no hepatosplenomegaly
Extremities-no cyanosis, clubbing, edema and good peripheral pulses
Integument-intact, no rashes, lesions or ecchymosis
Neurology-alert and oriented, nonfocal motor and sensory exam
Assessment
-
69-year-old incarcerated male with a history of chronic bronchitis, cystic lung mass right lower lobe status post bronchoscopy 03/04/2024 and hypertension was recently discharged with a diagnosis of hemoptysis and pulmonary sequestration and returns
with more hemoptysis for bronchial artery embolization-pulmonary consulted for hemoptysis/embolization 03/20/2024.
Assessment
Hemoptysis due to pulmonary sequestration
Cystic lung mass status post bronchoscopy 03/04/2024-negative pathology/cultures
Mild ovlodq-dyqspazlxz-krvywtkjuj 11.6
Mild hyperglycemia-blood sugar 123
Conditions present prior to admission:
Hospitalization 03/14/2024-hemoptysis after bronchoscopy secondary to cavitary cystic lesion and sequestration
Chronic bronchitis.
Pulmonary sequestration/hemoptysis-status post embolization 03/19/2024
Cystic lung mass right lower lobe January 2024.
Plan
Respiratory status improved with hemoptysis resolution since embolization
Monitor for recurrent hemoptysis
Successful superselective arteriogram and embolization of 2 separate arteries arising from the lower thoracic aorta and feeding the sequestration within the right lower lung zone 03/19/2024
Supplemental oxygen only if needed
Incentive spirometry
Quantify hemoptysis moving forward
Outpatient CT chest 3-4 months
Outpatient pulmonary follow-up
DVT prophylaxis while hospitalized
Nutrition
Early mobilization
Reviewed with nursing and primary team
Diagnostic data:
Chest X-Ray: 03/04/24- Low lung volumes without evidence for pneumothorax. There are increased bibasilar opacities with known complex solid cystic lesion within the medial right lower lobe not well-visualized radiographically.
CT Scan: CHEST 03/14/24- Persistent complex solid and multicystic cavitary type lesion in the medial basilar right lower lobe, previous bronchoscopy. There are 2 small arteries from the right side of the aorta which extend into this mass, findings
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 No jen hemorrhage in the right lung base.
Chest 02/26/24- 1. Stable CT appearance of a complex solid and multicystic/cavitary lesion in the medial basilar right lower lobe. Differential considerations include congenital, infectious/inflammatory, or neoplastic etiologies.
2. Severe coronary artery calcifications.
Arteriogram/embolization 03/19/2024-successful superselective arteriogram and embolization of 2 separate arteries arising from the lower thoracic aorta and feeding the sequestration within the right lower lung zone
PFT's: Spirometry 02/20/2024: FEV1 2.1 L 67%, FVC 3.08 L 73%, ratio 0.68 (moderate obstruction)
PFT 03/11/2024-FEV1 1.78-50%, FVC 2.92-70%, ratio 61, moderate obstruction with significant bronchodilator response
Bronchoscopy 03/04/2024-AFB negative, cultures pending, Legionella negative
Bronchoscopy 03/04/2024-right lower lung mass biopsy no evidence for malignancy
Right lower lobe brushing 03/04/2024-negative for malignant cells including brushing, transbronchial needle aspiration and bronchoalveolar lavage
Data Reviewed
-
PFT: Report reviewed by me
EKG: Report reviewed by me
Radiology: Report reviewed by me
CT Scan: Image personally visualized and interpreted and Report reviewed by me
Ultrasound: Report reviewed by me
Medical Tests (Nuc Med, Echo etc): Report reviewed by me
Labs: Labs reviewed by me
Old Records: Reviewed
Total Time Spent with Patient (in minutes): 65
--- NOTE | 2024-03-20 10:10 | W.DCSUMMARY ---
Discharge Summary
Discharge Data
Date of Admission: 03/19/24
Date of Discharge: 03/20/24
-
Pending Results: No
Hospital Course
69-year-old male with past medical history', essential hypertension, osteoporosis, osteoarthritis, anxiety/depression, cystic lung mass came to the hospital for presented with persistent emesis. Patient was recently here and was discharged to
present to be readmitted on 03/19/2024 for embolization. Patient was seen by interventional radiology and was taken for embolization. Patient tolerated the procedure well. Postprocedure patient was monitored in the hospital. Patient did not had
any further episodes of hemoptysis. Patient was seen by pulmonary throughout hospitalization. Patient hemoglobin prior to discharge was stable. Since patient symptoms improved and he tolerated embolization well, he was then discharged back to
[facility] with instructions to follow-up with all his physicians outpatient. He was instructed to get repeat CT scan of the chest in 4 months.
Discharge Plan
-
Patient Disposition: [facility]
Discharge Diagnosis/Procedures: Hemoptysis secondary to complex solid and cystic cavitary lung lesion
Diet: As tolerated
Activity: As tolerated
Driving Restrictions: As prior to admission
Bathing Restrictions: None
Blood Work: BMP next week
Others Tests: CT scan chest with contrast in 4 months
Activity Restrictions/Additional Instructions:
Patient to expect 1 to 2 days postembolization pain
Referrals:
[facility] [Family Provider] - in less than 1 week
Valarie Gutierrez, [Active] -
Prescriptions:
Continued
losartan 50 mg Tablet
50 mg PO BID
nortriptyline 50 mg Capsule
50 mg PO HS
metoprolol tartrate 100 mg Tablet
100 mg PO BID
tramadol 50 mg Tablet
50 mg PO TID
hydroxyzine pamoate 50 mg Capsule
50 mg PO BID PRN (Reason: ANXIETY)
spironolactone [Aldactone] 25 mg Tablet
25 mg PO DAILY
acetaminophen 325 mg Tablet
650 mg PO BIDPRN PRN (Reason: mild pain)
albuterol sulfate 2.5 mg /3 mL (0.083 %) Solution For Nebulization
2.5 mg INHALATION R TIDPRN PRN (Reason: sob)
calcium carbonate 500 mg calcium (1,250 mg) Tablet,Chewable
1,000 mg PO BIDPRN PRN (Reason: heartburn)
Patient Comments:
03/14/2024, Armond Murillo.
Discharge Orders:
Discharge Patient (As Directed); Ordered 03/20/24
Ordered By: Angel Sanders
Discharge Date and Time
Discharge Date/Time: 03/20/24 11:38
Print Language: LAO
--- NOTE | 2024-03-20 10:50 | CM ---
Patent from [facility] with Dx Hemoptysis, s/p moped feeding artery embolization 03/20.
Spoke with [facility]; she was informed patient had procedure as above and nurse would provide further clinical details. The patient is able to return to [facility] today. The phone for report [phone], fax [phone].
Plan return to [facility] today with guards.
== END 2024-03-20 11:38 | DRG 206 ==
LOC: IMU 12:37
PROVIDERS: Radiology Vascular & Interventional Radiology; ADMITTING PHYSICIAN Internal Medicine; CONSULT PHYSICIAN Internal Medicine Critical Care Medicine
PROC: B31S1ZZ Fluoroscopy of Right Pulmonary Artery using Low Osmolar Contrast (ICD-10-PCS; 2024-03-19)
DX: R91.1 Solitary pulmonary nodule (principal); I10 Essential (primary) hypertension; M81.0 Age-related osteoporosis without current pathological fracture; M19.90 Unspecified osteoarthritis, unspecified site; F32.A Depression, unspecified; F41.9 Anxiety disorder, unspecified
CPT/HCPCS: 36216; 37244; 75726; 76937; 80048; 80053; 85025; 85610; 87070; 99152; 99153; 99285; C1769

== ENCOUNTER → 2024-04-23 07:43 | Outpatient (REF) | payer OTHER, SELFPAY | LOC: RAD 07:43 | PROVIDERS: ATTENDING PHYSICIAN Nurse Practitioner | DX: R91.8 Other nonspecific abnormal finding of lung field (principal) | CPT/HCPCS: 71260; Q9967 ==

== ENCOUNTER 2024-05-25 19:18 | Emergency (ER) | payer OTHER, SELFPAY ==
[2024-05-25] VITALS (7 sets, daily range): BP systolic 137–184; BP diastolic 85–97; BMI 28.1
[2024-05-25] MEDS: TORADOL 15 MG IM (20:49)
--- NOTE | 2024-05-25 22:06 | ED.GENMED ---
History of Present Illness
General
Chief Complaint: Fall
Source: patient
Exam Limitations: none
Time Seen by Provider: 05/25/24 19:52
History of Present Illness
History of Present Illness:
Patient fell out of bed. Complaining of right hip low back pain on the right buttock area. Right shoulder pain. History of chronic right hip issues. Previous surgery to the right hip. No LOC
Past History
Past History
ED Past Medical History: HTN, Psychiatric and Other (Chronic bronchitis)
ED Past Surgical History: Orthopedic
Review of Systems
Review of Systems
All Other Systems: Not applicable
Respiratory: Reports no symptoms
Cardiac: Reports no symptoms
Phy Exam
Physical Exam
Physical Exam:
TRAUMA EXAM:
VITAL SIGNS: Vital signs reviewed, cooperative
DISTRESS: No active disease
EYES: Pupils reactive, no orbital trauma
NOSE: No deformity or epistaxis
FACE AND SCALP: Posterior scalp contusion no facial trauma, external canals no blood
NECK: Supple mild paracervical tenderness r
BACK: Back nontender, pelvis stable to compression
RESPIRATORY: No distress, breath sounds normal, no tender chest wall
CARDIAC: No murmur, pulses equal and strong
ABDOMEN: Soft nontender bowel sounds normal
SKIN: Skin intact no bleeding, color normal
EXTREMITIES: Mild tenderness to the right buttock. Pelvis stable. No significant pain with hip patient. Mild tenderness to the right shoulder. Able to abduct fully. No AC tenderness. No deformity. All other extremities unremarkable
NEUROLOGICAL: Alert, oriented, no motor deficits
PSYCH: Mood affect normal
Course
Orders/Labs/Results
Orders:
Orders
05/25/24 19:34
Electrocardiogram (*1) Urgent
Reason for Study: Syncope
EKG- Treatment ONCE
05/25/24 20:11
CT Cervical Spine W/o Iv Contr Urgent
Comment:
Reason For Exam: trauma
CT Head W/o Iv Contrast Urgent
Comment:
Reason For Exam: trauma
Cardiac Monitoring- Treatment ONCE
Ketorolac [Toradol] 30 mg IM NOW STA
Shoulder, Right 2 Views [CR Shoulder - Right Min 2 View] Urgent
Comment:
Reason For Exam: trauma
05/25/24 20:12
CR Femur - Right Min 2 Vw Urgent
Comment:
Reason For Exam: trauma
CR Pelvis - 1 Or 2 Views Urgent
Comment:
Reason For Exam: trauma
05/25/24 20:48
Ketorolac [Toradol] 15 mg .ROUTE .STK-MED ONE
05/25/24 20:49
Ketorolac [Toradol] 15 mg IM NOW STA
Vital Signs
Initial and Last Documented VS:
Initial Vital Signs
Pulse Resp BP Pulse Ox
88 14 184/97 95
05/25/24 19:25 05/25/24 19:25 05/25/24 19:25 05/25/24 19:25
Last Documented Vital Signs
Temp Pulse Resp BP Pulse Ox
98.7 F 90 22 144/89 94
05/25/24 19:39 05/25/24 20:06 05/25/24 20:06 05/25/24 20:06 05/25/24 20:06
*Radiology
Radiology exam reviewed: preliminary read by ED provider (Negative x-rays) and radiology read reviewed (Negative CTs except for a small parotid nodule)
*Pulse Oximetry
Patient hypoxic: no
*Critical Care Note
Total Time (30-74mins, 75-104mins- exclusive of procedures): Not Applicable
Update Note
Update Note:
No serious medic injuries. No syncope. Stable for discharge to follow-up
ED Attending Note
-
Portions of this chart may have been created with voice recognition software.� Occasional wrong word or��sound alike� substitutions may have occurred due to the inherent limitations of voice recognition software.
Discharge Plan
Departure
Patient Disposition: Home (Routine Discharge)
Date of Disposition: 05/25/24
Time of Disposition: 22:08
Patient with high blood pressure during this ER visit?: Yes
Discharge Problem:
Fall/multiple contusions, Incidental parotid nodule
Instructions: Head Injury in Adults (DC), Contusion (DC), BLOOD PRESSURE
Prescriptions:
No Action
losartan 50 mg Tablet
50 mg PO BID
nortriptyline 50 mg Capsule
50 mg PO HS
metoprolol tartrate 100 mg Tablet
100 mg PO BID
tramadol 50 mg Tablet
50 mg PO TID
hydroxyzine pamoate 50 mg Capsule
50 mg PO BID PRN (Reason: ANXIETY)
spironolactone [Aldactone] 25 mg Tablet
25 mg PO DAILY
acetaminophen 325 mg Tablet
650 mg PO BIDPRN PRN (Reason: mild pain)
albuterol sulfate 2.5 mg /3 mL (0.083 %) Solution For Nebulization
2.5 mg INHALATION R TIDPRN PRN (Reason: sob)
calcium carbonate 500 mg calcium (1,250 mg) Tablet,Chewable
1,000 mg PO BIDPRN PRN (Reason: heartburn)
Patient Comments:
03/14/2024, Tums Ultra.
Referrals:
NONE,* [Family Provider] -
Activity Restrictions/Additional Instructions:
As per the CT report that I gave you, there is a small nodule in your parotid gland that should be followed up routinely at some point. An ENT physician would be appropriate or primary care
Interventions
Interventions:
*Risk Screen - Suicide Last Done: 05/25/24 19:29
*General Assessment Last Done: 05/25/24 19:29
*Neglect/Abuse Screening Last Done: 05/25/24 19:29
ED- Fall Risk Assessment Last Done: 05/25/24 19:30
*ED COVID-19 Vaccine History Last Done: 05/25/24 19:29
ED-Musculoskeletal Assessment Last Done: 05/25/24 19:30
ED- Neurological Assessment Last Done: 05/25/24 19:30
ED-Skin Assessment Last Done: 05/25/24 19:30
Discharge Date and Time
Print Language: ALBANIAN
== END 2024-05-25 22:23 | disposition home or self-care (01) ==
LOC: EMR 19:18
PROVIDERS: EMERGENCY PHYSICIAN Emergency Medicine
DX: S00.03XA Contusion of scalp, initial encounter (principal); W06.XXXA Fall from bed, initial encounter; I10 Essential (primary) hypertension
CPT/HCPCS: 99283; 96372; 70450; 72125; 72170; 73030; 73552; 93005